=== PATIENT | female | born 1990 | race Caucasian/White ===

== ENCOUNTER 2021-11-12 04:30 | Emergency (ER) | payer BC, OTHER ==
[2021-11-12 04:45] VITALS: BP 116/73; PULSE 74; TEMP 98.6; BMI 29.8
[2021-11-12] MEDS ORDERED: TOBRAMYCIN/DEXAMETHASONE OPHTH. OINTMENT 1 TUBE ONE (04:46)
[2021-11-12] MEDS ORDERED: CIPROFLOXACIN HCL 0.3% OPHTH 2.5ML BOTTLE ONE (04:47)
[2021-11-12] MEDS ORDERED: CIPROFLOXACIN 0.3% EYE DROPS 5 ML BOTTLE OD STA (04:47)
[2021-11-12] MEDS ORDERED: TOBRA 0.3%/DEXAMETH 0.1% OPHTHALMIC SUSP 2.5 ML BTL OD SCH (06:00)
== END 2021-11-12 04:55 | disposition home or self-care (01) ==
LOC: FER 04:30
DX: H10.31 Unspecified acute conjunctivitis, right eye (principal)
CPT/HCPCS: 99283-25

== ENCOUNTER 2023-11-25 13:23 | Emergency (ER) | payer OTHER, BC ==
[2023-11-25 13:27] VITALS: BP 117/74; PULSE 92; RESP 18; TEMP 98.2; BMI 34.7
== END 2023-11-25 15:26 | disposition left against medical advice (07) ==
LOC: JERFT 13:23
DX: M54.9 Dorsalgia, unspecified (principal)
CPT/HCPCS: 99281-25